=== PATIENT | male | born 1960 | race Caucasian/White ===

== ENCOUNTER 2016-03-31 08:55 | Emergency (ER) | payer BC ==
[~2016-03-31] VITALS: Wt 74.0 kg
[~2016-03-31 08:55] MED LIST: AMLO-218 PO; GABA100C PO; PRED20TA PO; TAMS0.4C2 PO
--- NOTE | 2016-03-31 10:34 | RADRPT ---
PROCEDURE: Scrotal ultrasound. CLINICAL INDICATION: Scrotal pain. TECHNIQUE: Real-time two-dimensional vu scale ultrasound, color and Doppler with spectral analys is imaging were performed. COMPARISON: No prior studies are available for comparison. FINDINGS: TESTES Right testis size: 4.0 x 1.9 x 3.6 cm Left testis size: 4.1 x 1.7 x 2.8 cm Echotexture: Normal. Color Doppler: Normal color Doppler flow pattern. EPIDIDYMIDES Size and echotexture: Normal. Focal lesion: None. Color Doppler: Normal color Doppler flow pattern. HYDROCELE None. VARICOCELE None. OTHER FINDINGS None. IMPRESSION: 1. Unremarkable scrotal ultrasound. RPTAT: EE .Arnoldo Mccracken MD, Date Time Electronically viewed and signed by .Arnoldo Mccracken MD, on 03/31/2016 10:38 .C/
[2016-03-31 10:45] LABS: ADD UMIC NO; URINE BILIRUBIN (Dip) NEGATIVE (NEGATIVE); URINE BLOOD (Dip) NEGATIVE (NEGATIVE); URINE COLOR LT. YELLOW (YELLOW); URINE GLUCOSE (Dip) NEGATIVE (NEGATIVE); URINE KETONES (Dip) NEGATIVE (NEGATIVE); URINE LEUKOCYTE ESTERASE (Dip) NEGATIVE (NEGATIVE); URINE NITRITE (Dip) NEGATIVE (NEGATIVE); URINE TOTAL PROTEIN (Dip) NEGATIVE (NEGATIVE); URINE UROBILINOGEN (Dip) 0.2 E.U./dL (0.1-1.0)
[2016-03-31 10:56] LABS: ALBUMIN 4.4 g/dl (3.3-4.9)
[2016-03-31 10:57] LABS: POTASSIUM 4.5 mmol/L (3.5-5.1)
[2016-03-31 10:59] LABS: ALBUMIN/GLOBULIN RATIO 1.41; BILIRUBIN,INDIRECT 0.6 mg/dl (0-1.1); BILIRUBIN,TOTAL 0.6 mg/dl (0.2-1.3); CALCIUM 9.2 mg/dl (8.4-10.2); CREATININE 0.81 mg/dl (0.61-1.24); TOTAL PROTEIN 7.5 g/dl (6.1-8.1)
--- NOTE | 2016-03-31 11:19 | ERD ---
ER Documentation Chief Complaint Date/Time DATE: 03/31/16 TIME: 11:16 Chief Complaint BILATERAL TESTICULAR PAIN FOR 3 MOS. NO TRAUMA NO SWELLING. HPI Patient is a 55-year-old male with no significant medical history presenting to the emergency department for bilateral testicular pain and prostate pain which is been ongoing for the past 6 months. He states the pain has been increasing recently. He did go to his primary care doctor about 2 months ago who ordered a PSA which was normal and stated he needed to follow-up with a specialist. The patient states he never did follow-up with a specialist and he is presenting today due to his pain. He denies any urinary symptoms, fevers, chills, nausea, vomiting, diarrhea, or other symptoms at this time. ROS All systems reviewed and are negative except as per history of present illness. Medications Home Meds Active Scripts Amlodipine Besylate* (Norvasc*) 10 Mg Tablet, 10 MG PO DAILY, #30 TAB Prov:TESSA LAZARO DO 01/03/16 Gabapentin* (Neurontin*) 100 Mg Capsule, 100 MG PO TID, #90 CAP Prov:TESSA LAZARO. DO 01/03/16 Prednisone* (Prednisone*) 20 Mg Tab, 60 MG PO DAILY for 5 Days, TAB Prov:TESSA LAZARO DO 01/03/16 Reported Medications Tamsulosin Hcl* (Tamsulosin Hcl*) 0.4 Mg Cap.er.24h, 0.4 MG PO HS, CAP 01/03/16 Allergies Allergies: Coded Allergies: No Known Allergy (Unverified , 01/03/16) PMhx/Soc Medical and Surgical Hx: pt denies Medical Hx, pt denies Surgical Hx History of Surgery: No Anesthesia Reaction: No Hx Neurological Disorder: No Hx Respiratory Disorders: No Hx Cardiac Disorders: No Hx Psychiatric Problems: No Hx Miscellaneous Medical Probl: Yes (BPH) Hx Alcohol Use: No Hx Substance Use: No Hx Tobacco Use: No Smoking Status: Never smoker FmHx Noncontributory for chief complaint Physical Exam Vitals Vital Signs Date Time Temp Pulse Resp B/P Pulse Ox O2 Delivery O2 Flow Rate FiO2 03/31/16 08:57 98.8 89 21 170/88 98 Physical Exam INITIAL VITAL SIGNS: Reviewed by me. GENERAL: Alert and interactive. No acute distress. HEAD: Head is normocephalic and atraumatic. EYES: EOMI. No scleral icterus. No conjunctival injection. ENT: Moist mucosa. NECK: Supple. Full range of motion. RESPIRATORY: Normal respiratory effort. Clear breath sounds bilaterally. No wheezing, rales, or rhonchi. CV: Regular rate and rhythm. Normal S1 S2. No S3 or S4. No murmurs. ABDOMEN: Soft, non-distended, non-tender. No guarding. No rebound. No masses. RECTAL: RN Hosiery Operator and Verbal Consent Obtained Sphincter tone is normal. No external hemorrhoids seen. No evidence of anal fissure or internal hemorrhoids. Non-tender to digital rectal palpation. No masses palpated. Guaiac negative. Control is positive. Exam: Scrotum: Normal Hernia: None Testes/Epid: Non-tender w/ normal lie Cremaster: Reflex intact Lymph: No inguinal lymphadenopathy Discharge: None EXTREMITIES: No deformity. SKIN: Warm and dry. NEUROLOGIC: Alert and oriented x 4. Speech is normal. Moves all extremities equally. No motor or sensory deficits noted. Result Diagram: 03/31/16 1020 Results 24 hrs Laboratory Tests Test 03/31/16 10:20 03/31/16 10:25 Alanine Aminotransferase (ALT/SGPT) 47IU/L Albumin 4.4g/dl Albumin/Globulin Ratio 1.41 Alkaline Phosphatase 69IU/L Anion Gap 19 Aspartate Amino Transf (AST/SGOT) 34IU/L Blood Urea Nitrogen 11mg/dl Calcium Level 9.2mg/dl Carbon Dioxide Level 25mmol/L Chloride Level 103mmol/L Creatinine 0.81mg/dl Direct Bilirubin 0.00mg/dl Globulin 3.10g/dl Glucose Level 89mg/dl Indirect Bilirubin 0.6mg/dl Potassium Level 4.5mmol/L Sodium Level 142mmol/L Total Bilirubin 0.6mg/dl Total Protein 7.5g/dl Urine Bilirubin NEGATIVE Urine Clarity CLEAR Urine Color LT. YELLOW Urine Glucose NEGATIVE% Urine Hemoglobin NEGATIVE Urine Ketones NEGATIVE Urine Leukocyte Esterase NEGATIVE Urine Nitrite NEGATIVE Urine Specific [place] 1.010 Urine Total Protein NEGATIVE Urine Urobilinogen 0.2 E.U./dL Urine pH 6.0 Procedures/MDM 55-year-old male with no significant medical history presents secondary to complaints of bilateral testicle pain and prostate pain. Scrotal ultrasound interpreted by radiologist: Lab results reviewed and showed Departure Condition: Stable Additional Instructions: Follow-up with your primary care physician within 1 week. Return to the emergency department immediately should you have any new or worsening symptoms, uncontrolled fevers, or other unexplained symptoms. Take all medications as directed. MELANY GRACE PA-C Mar 31, 2016 11:19
[2016-03-31 12:10] LABS: BASOPHILS % 0.6 % (0.0-2.0); EOSINOPHILS % 0.4 % (0.0-7.0); HEMATOCRIT 44.2 % (42.0-52.0); HEMOGLOBIN 15.3 g/dl (14.0-18.0); LYMPHOCYTES # 2.6 10^3/ul (0.8-2.9); LYMPHOCYTES % 32.8 % (15.0-51.0); MEAN CORPUSCULAR HEMOGLOBIN 29.1 pg (29.0-33.0); MEAN CORPUSCULAR HGB CONC 34.6 g/dl (32.0-37.0); MEAN CORPUSCULAR VOLUME 83.9 fl (82.0-101.0); MEAN PLATELET VOLUME 9.3 fl (7.4-10.4); MONOCYTE # 0.6 10^3/ul (0.3-0.9); MONOCYTES % 7.9 % (0.0-11.0); NEUTROPHIL # 4.6 10^3/ul (1.6-7.5); NEUTROPHILS % 58.3 % (39.0-77.0); PLATELET COUNT 215 10^3/UL (140-440); RED BLOOD COUNT 5.27 10^6/ul (4.70-6.10); RED CELL DISTRIBUTION WIDTH 13.9 % (11.5-14.5); UNCORRECTED WBC 7.8 10^3/ul (4.8-10.8); WHITE BLOOD COUNT 7.8 10^3/ul (4.8-10.8)
[2016-03-31 12:12] LABS: CONDITION 1
[2016-03-31] MEDS ORDERED: DOXY100T20 PO (12:41)
[2016-04-02 19:00] LABS: PSA, FREE 0.1 ng/mL
== END 2016-03-31 13:04 | disposition home or self-care (01) ==
LOC: FTE 08:55
DX: N50.811 Right testicular pain (principal); N50.812 Left testicular pain; N42.89 Other specified disorders of prostate
CPT/HCPCS: 36415; 76870; 80053; 81003; 84153; 84154; 85025

== ENCOUNTER 2016-04-24 13:35 | Emergency (ER) | payer BC ==
[~2016-04-24] VITALS: Wt 72.8 kg
[~2016-04-24 13:35] MED LIST changes: +DOXY100T20 PO
--- NOTE | 2016-04-24 14:28 | EN ---
Date/Time of Note Date/Time of Note DATE: 04/24/16 TIME: 14:26 ER Progress Note This is a 55-year-old male presenting to the emergency room complaining of left lower facial pain, numbness and tingling and warmth that radiates up to his head since Saturday. Patient states that he was seen at a dentist on Saturday in which they have discussed with him that it is an infection. Patient went to another doctor on Saturday at the [facility], in which patient is not an infection and it is a problem with the nerves. They have discussed with him that if the pain worsens and continues to come to the emergency room for CT imaging. Patient appears neurovascular intact in E however he will be transferred to ED to for further evaluation and management. MANISH TREVIZO PA-C Apr 24, 2016 14:27
[2016-04-24] MEDS ORDERED: HYDR-906 PO (14:56)
[2016-04-24] MEDS ORDERED: NAPR-260 PO (14:56)
[2016-04-24] MEDS ORDERED: CLIN-73 PO (14:56)
[2016-04-24 15:41] VITALS: BP 174/82; PULSE 66; RESP 18; TEMP 98
--- NOTE | 2016-04-24 16:06 | ERD ---
DATE OF SERVICE: 04/24/2016 HISTORY OF PRESENT ILLNESS: The patient is a 55-year-old male coming in complaining of left lower d ental pain for the last 4 days. Patient states he has taken ibuprofen with no alleviation. He was given antibiotics a few weeks ago; however, it has not helped his symptoms. He has pain with eating . He states that the pain radiates up his jaw. He has had no facial swelling. No difficulty swall owing, no neck swelling and denies fevers. PAST MEDICAL HISTORY: Denies. ALLERGIES: DENIES. PAST SURGICAL HISTORY: Denies. SURGICAL HISTORY: Ortho surgery on his wrist. SOCIAL HISTORY: Denies. REVIEW OF SYSTEMS: A 12-point review of systems was done. Refer to HPI for positives, all other sy stems negative. PHYSICAL EXAMINATION VITAL SIGNS: Temperature is 98.5, pulse 85, blood pressure is 140/81, respiratory rate 20, O2 satur ation 97% on room air. Pain intensity of 10/10. GENERAL: The patient is well-appearing, well-nourished, no acute distress. HEENT: Atraumatic. Conjunctivae are pink. Pupils equal, round, and reactive to light. There is no s cleral icterus. Tympanic membranes clear bilaterally. Oropharynx clear. No nystagmus or photophobia . There is mild erythema noted to the left lower jawline. The patient does have pain when he bite s down on tongue depressor. There is no cervical lymphadenopathy, no fluctuance, no masses. CHEST: Clear to auscultation bilaterally. There are no rales, wheezes or rhonchi. HEART: Regular rate and rhythm. No murmurs, clicks, rubs or gallops. No S3 or S4. NEURO: Alert and oriented. Cranial nerves 2-12 intact. Motor strength in all 4 extremities with 5/5 strength. Sensation grossly intact. Normal speech and gait. Babinski negative. DIAGNOSIS: Dental pain, unspecified. MEDICAL DECISION MAKING: Patient will be treated with antibiotics and pain medication. I did recom mend patient to follow up with his dentist for close evaluation. I did not feel that there was rai cation for blood work or imaging. I have low suspicion for intracranial hemorrhage, mass effect or neuro deficit. DISCHARGE: The patient is discharged stable. Patient discharged with clindamycin, [place] and naprox en and told to follow up with primary care within 1 to 2 days for reevaluation. Patient was told if symptoms progress or worsen to return to the ER. All other questions answered at time of discharge . Discharge summary given at the time of departure. Patient understood and complied with plan. Dictated By: GEGE YEN for MATHEW EASTMAN/NTS Conf#: [id number] DID#: [id number]
== END 2016-04-24 15:43 | disposition home or self-care (01) ==
LOC: E/R 13:35 → FTE 15:43
DX: K08.89 Other specified disorders of teeth and supporting structures (principal)
CPT/HCPCS: 99284

== ENCOUNTER 2016-05-18 09:30 | Emergency (ER) | payer BC ==
[~2016-05-18] VITALS: Wt 71.5 kg
[~2016-05-18 09:30] MED LIST changes: +CLIN-73 PO; +HYDR-906 PO; +NAPR-260 PO
[2016-05-18] MEDS ORDERED: ONDANSETRON (ODT) 4 MG TAB ODT STA (11:35)
[2016-05-18] MEDS ORDERED: HYDROCODONE/APAP (5/325) TAB PO ONE (12:00)
[2016-05-18 12:24] LABS: ADD SCAN DIFF NO
[2016-05-18 12:26] LABS: BASOPHILS % 0.6 % (0.0-2.0); EOSINOPHILS # 0.1 10^3/ul (0.0-0.5); EOSINOPHILS % 0.7 % (0.0-7.0); HEMATOCRIT 46.9 % (42.0-52.0); LYMPHOCYTES # 2.3 10^3/ul (0.8-2.9); LYMPHOCYTES % 31.3 % (15.0-51.0); MEAN CORPUSCULAR HEMOGLOBIN 28.7 pg (29.0-33.0); MEAN CORPUSCULAR HGB CONC 34.1 g/dl (32.0-37.0); MEAN CORPUSCULAR VOLUME 84.1 fl (82.0-101.0); MEAN PLATELET VOLUME 10.5 fl (7.4-10.4); MONOCYTE # 0.7 10^3/ul (0.3-0.9); NEUTROPHIL # 4.2 10^3/ul (1.6-7.5); PLATELET COUNT 266 10^3/UL (140-415); RED BLOOD COUNT 5.58 10^6/ul (4.70-6.10); RED CELL DISTRIBUTION WIDTH 14.2 % (11.5-14.5); WHITE BLOOD COUNT 7.3 10^3/ul (4.8-10.8)
[2016-05-18 12:31] LABS: ADD UMIC NO; URINE BILIRUBIN (Dip) NEGATIVE (NEGATIVE); URINE BLOOD (Dip) NEGATIVE (NEGATIVE); URINE COLOR LT. YELLOW (YELLOW); URINE GLUCOSE (Dip) NEGATIVE (NEGATIVE); URINE KETONES (Dip) NEGATIVE (NEGATIVE); URINE LEUKOCYTE ESTERASE (Dip) NEGATIVE (NEGATIVE); URINE NITRITE (Dip) NEGATIVE (NEGATIVE); URINE TOTAL PROTEIN (Dip) NEGATIVE (NEGATIVE); URINE UROBILINOGEN (Dip) 0.2 E.U./dL (0.1-1.0)
[2016-05-18 12:41] LABS: ALBUMIN 4.6 g/dl (3.3-4.9); POTASSIUM 4.1 mmol/L (3.5-5.1)
[2016-05-18 12:43] LABS: BILIRUBIN,INDIRECT 0.6 mg/dl (0-1.1); BILIRUBIN,TOTAL 0.6 mg/dl (0.2-1.3); CREATININE 0.83 mg/dl (0.61-1.24)
[2016-05-18 12:44] LABS: ALBUMIN/GLOBULIN RATIO 1.43; CALCIUM 9.5 mg/dl (8.4-10.2); TOTAL PROTEIN 7.8 g/dl (6.1-8.1)
--- NOTE | 2016-05-18 13:29 | ERD ---
ER Documentation Chief Complaint Date/Time DATE: 05/18/16 TIME: 13:25 Chief Complaint bilat testicle pain for a few years. has appt with urology, pain not better HPI Patient is a 56-year-old gentleman who has been reporting testicular pain of both testicles for the last several years. He allegedly had an ultrasound done at another facility that showed bilateral epididymal cysts which he states are painful. He says he saw a urologist but the urologist told him there was nothing to do for this and this is very upsetting to him. He has taken doxycycline which did not help his pain order to help the cyst resolved. And so he is here for second opinion. He denies any change in the pain. He denies any trauma, fever, dysuria, hematuria, penile drip, discharge, sores, or lesions. He has not had any abdominal pain, nausea, vomiting, diarrhea, flank, or back pain. He states his pain is only in the testicles and it is the same pain for which he is already been evaluated. The remainder of the systems are negative. ROS All systems reviewed and are negative except as per history of present illness. Medications Home Meds Active Scripts Naproxen* (Naprosyn*) 500 Mg Tablet, 500 MG PO BID Y for PAIN AND/OR INFLAMMATION, #30 TAB Prov:NEIL TRUONG PA-C 04/24/16 Hydrocodone/Acetaminophen ([place] 5-325 Tablet) 1 Each Tablet, 1 TAB PO Q6H Y for PAIN, #7 TAB Prov:NEIL TRUONG PA-C 04/24/16 Clindamycin Hcl* (Clindamycin Hcl*) 300 Mg Capsule, 300 MG PO TID for 7 Days, CAP Prov:NEIL TRUONG PA-C 04/24/16 Doxycycline Hyclate* (Doxycycline Hyclate*) 100 Mg Tablet.dr, 100 MG PO BID for 10 Days, #20 TAB Prov:MELANY GRACE PA-C 03/31/16 Amlodipine Besylate* (Norvasc*) 10 Mg Tablet, 10 MG PO DAILY, #30 TAB Prov:TESSA LAZARO DO 01/03/16 Gabapentin* (Neurontin*) 100 Mg Capsule, 100 MG PO TID, #90 CAP Prov:TESSA LAZARO DO 01/03/16 Prednisone* (Prednisone*) 20 Mg Tab, 60 MG PO DAILY for 5 Days, TAB Prov:TESSA LAZARO DO 01/03/16 Reported Medications Tamsulosin Hcl* (Tamsulosin Hcl*) 0.4 Mg Cap.er.24h, 0.4 MG PO HS, CAP 01/03/16 Allergies Allergies: Coded Allergies: No Known Allergy (Unverified , 01/03/16) PMhx/Soc History of Surgery: No Anesthesia Reaction: No Hx Neurological Disorder: No Hx Respiratory Disorders: No Hx Cardiac Disorders: No Hx Psychiatric Problems: No Hx Miscellaneous Medical Probl: Yes (BPH) Hx Alcohol Use: No Hx Substance Use: No Hx Tobacco Use: No FmHx Family History: No diabetes Physical Exam Vitals Vital Signs Date Time Temp Pulse Resp B/P Pulse Ox O2 Delivery O2 Flow Rate FiO2 05/18/16 09:33 98.8 93 20 193/101 98 Physical Exam Const: [] Well-developed well-nourished male sitting on the bed no acute distress Head: Atraumatic normocephalic Eyes: Normal Conjunctiva ENT: Normal External Ears, Nose and Mouth. Neck: Full range of motion..~ No meningismus. Resp: Clear to auscultation bilaterally Cardio: Regular rate and rhythm, no murmurs Abd: Soft, non tender, non distended. Normal bowel sounds no masses, rebound , or guarding Skin: No petechiae or rashes Back: No midline or flank tenderness Ext: No cyanosis, or edema Neur: Awake and alert oriented 3, GCS of 15, moves all extremities equally, and nonfocal Psych: Normal Mood and Affect : Patient reports bilateral testicular pain in the epididymal region without any palpable swelling, objective masses, no lymphadenopathy in the inguinal regions, no erythema Result Diagram: 05/18/16 1218 05/18/16 1218 Results 24 hrs Laboratory Tests Test 05/18/16 12:18 05/18/16 12:25 Alanine Aminotransferase (ALT/SGPT) 62IU/L Albumin 4.6g/dl Albumin/Globulin Ratio 1.43 Alkaline Phosphatase 86IU/L Anion Gap 15 Aspartate Amino Transf (AST/SGOT) 38IU/L Basophils # 0.010^3/ul Basophils % 0.6% Blood Urea Nitrogen 11mg/dl Calcium Level 9.5mg/dl Carbon Dioxide Level 28mmol/L Chloride Level 104mmol/L Creatinine 0.83mg/dl Direct Bilirubin 0.00mg/dl Eosinophils # 0.110^3/ul Eosinophils % 0.7% Globulin 3.20g/dl Glucose Level 86mg/dl Hematocrit 46.9% Hemoglobin 16.0g/dl Indirect Bilirubin 0.6mg/dl Lymphocytes # 2.310^3/ul Lymphocytes % 31.3% Mean Corpuscular Hemoglobin 28.7pg Mean Corpuscular Hemoglobin Concent 34.1g/dl Mean Corpuscular Volume 84.1fl Mean Platelet Volume 10.5fl Monocytes # 0.710^3/ul Monocytes % 9.0% Neutrophils # 4.210^3/ul Neutrophils % 58.0% Nucleated Red Blood Cells # 0.010^3/ul Nucleated Red Blood Cells % 0.0/100WBC Platelet Count 51465^3/UL Potassium Level 4.1mmol/L Red Blood Count 5.5810^6/ul Red Cell Distribution Width 14.2% Sodium Level 143mmol/L Total Bilirubin 0.6mg/dl Total Protein 7.8g/dl White Blood Count 7.310^3/ul Urine Bilirubin NEGATIVE Urine Clarity CLEAR Urine Color LT. YELLOW Urine Glucose NEGATIVE% Urine Hemoglobin NEGATIVE Urine Ketones NEGATIVE Urine Leukocyte Esterase NEGATIVE Urine Nitrite NEGATIVE Urine Specific [place] 1.010 Urine Total Protein NEGATIVE Urine Urobilinogen 0.2 E.U./dL Urine pH 6.0 Current Medications Medications (Trade) Dose Ordered Sig/Gloria Route PRN Reason Start Time Stop Time Status Last Admin Dose Admin Acetaminophen/ Hydrocodone Bitart ([place] (5/325)) 2 tab ONCE ONCE PO 05/18/16 12:00 05/18/16 12:01 DC Ondansetron HCl (Zofran Odt) 4 mg ONCE STAT ODT 05/18/16 11:35 05/18/16 11:41 DC Procedures/MDM Differential includes but is not limited to epididymitis, epididymal cyst, hydrocele, STD, testicular torsion, orchitis Testicular ultrasound revealed bilateral epididymal cyst as well as bilateral hydroceles but no evidence of epididymitis or orchitis. He also does not have testicular torsion. 1400: Patient has a normal white count, urinalysis is clean. He appears stable for discharge home with follow-up with a urologist. Departure Diagnosis: Primary Impression: Hydrocele, bilateral Additional Impression: Epididymal cyst Condition: Stable Patient Instructions: Hydrocele, Type Not Specified Referrals: KRISTYN FREEMAN MD Additional Instructions: You may want to wear a jock strap for support. This may help significantly with the pain and discomfort that you are experiencing. Please make an appointment either with Dr. Freeman or with the urologist of your choice. Return to the emergency department for any new or worsening symptoms. ODILIA GLOVER May 18, 2016 13:28
--- NOTE | 2016-05-18 13:55 | RADRPT ---
PROCEDURE: Scrotal ultrasound CLINICAL INDICATION: Scrotal pain TECHNIQUE: Scrotal ultrasound was performed in multiple obliquities. Gan scale and color imaging was performed. Images were reviewed on high resolution PACS monitors. COMPARISON: None available FINDINGS: The testes are normal in size and echogenicity. There is normal flow to the bilateral testes. No t esticular mass or cyst is identified. No hydroceles are seen. There is a 5 mm right epididymal cyst and a 4 mm left epididymal cyst.. Mild bilateral varicoceles are present. IMPRESSION: 1. Small bilateral epididymal cysts. 2. Mild bilateral varicoceles. 3. Otherwise unremarkable scrotal ultrasound. RPTAT: KK .Yovany Laird MD, MD Date Time Electronically viewed and signed by .Yovany Laird MD, on 05/18/2016 13:55 .B/
[2016-05-18] MEDS ORDERED: TRAM50TA2 PO (14:06)
[2016-05-18 14:25] VITALS: BP 113/59; PULSE 65; RESP 18; TEMP 98.3
== END 2016-05-18 14:52 | disposition home or self-care (01) ==
LOC: E/R 09:30
DX: N43.3 Hydrocele, unspecified (principal); N50.3 Cyst of epididymis
CPT/HCPCS: 76870; 80053; 81003; 85025; 87591; 99284; Z7610

== ENCOUNTER 2017-01-22 17:19 | Emergency (ER) | payer BC ==
[~2017-01-22] VITALS: Wt 73.2 kg
[~2017-01-22 17:19] MED LIST changes: -CLIN-73 PO; +TRAM50TA2 PO
--- NOTE | 2017-01-22 18:50 | ERD ---
ER Documentation Chief Complaint Chief Complaint l. 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 Patient describes the pain as sharp, 6/10, worse upon movement. Patient denies any deformity. Patient denies any direct trauma on affected area ROS All systems reviewed and are negative except as per history of present illness. Medications Home Meds Active Scripts Tramadol HCl (Tramadol HCl) 50 Mg Tablet, 50 MG PO Q6, #20 TAB 0 Refills Prov:MARTÍN GLOVERA 05/18/16 Naproxen* (Naprosyn*) 500 Mg Tablet, 500 MG PO BID Y for PAIN AND/OR INFLAMMATION, #30 TAB Prov:NEIL TRUONG PA-C 04/24/16 Hydrocodone/Acetaminophen ([place] 5-325 Tablet) 1 Each Tablet, 1 TAB PO Q6H Y for PAIN, #7 TAB Prov:NEIL TRUONG PA-C 04/24/16 Doxycycline Hyclate* (Doxycycline Hyclate*) 100 Mg Tablet.dr, 100 MG PO BID for 10 Days, #20 TAB Prov:MELANY GRACE PA-C 03/31/16 Amlodipine Besylate* (Norvasc*) 10 Mg Tablet, 10 MG PO DAILY, #30 TAB Prov:TESSA LAZARO DO 01/03/16 Gabapentin* (Neurontin*) 100 Mg Capsule, 100 MG PO TID, #90 CAP Prov:TESSA LAZARO DO 01/03/16 Prednisone* (Prednisone*) 20 Mg Tab, 60 MG PO DAILY for 5 Days, TAB Prov:LOLA LAZAROSTOLOS AEmeka DO 01/03/16 Reported Medications Tamsulosin Hcl* (Tamsulosin Hcl*) 0.4 Mg Cap.er.24h, 0.4 MG PO HS, CAP 01/03/16 Allergies Allergies: Coded Allergies: No Known Allergy (Unverified , 05/18/16) PMhx/Soc History of Surgery: No Anesthesia Reaction: No Hx Neurological Disorder: No Hx Respiratory Disorders: No Hx Cardiac Disorders: No Hx Psychiatric Problems: No Hx Miscellaneous Medical Probl: Yes (BPH) Hx Alcohol Use: No Hx Substance Use: No Hx Tobacco Use: No FmHx Family History: No coronary disease, No diabetes, No other Physical Exam Vitals Vital Signs Date Time Temp Pulse Resp B/P Pulse Ox O2 Delivery O2 Flow Rate FiO2 01/22/17 17:40 97.0 77 20 174/93 97 Physical Exam GENERAL: The patient is well developed and appropriate for usual state of health, in no apparent distress. CHEST: Clear to auscultation bilaterally. There are no rales, wheezes or rhonchi. HEART: Regular rate and rhythm. No murmurs, clicks, rubs or gallops. No S3 or S4. ABDOMEN: Soft, nontender and nondistended. Good bowel sounds. No rebound or guarding. No gross peritonitis. No gross organomegaly or masses. No Up sign or McBurney point tenderness. BACK: No midline or flank tenderness. EXTREMITIES: Able to do full range of motion of left ankle w/o restriction. no deformity, no redness or swelling. Equal pulses bilaterally. There is no peripheral clubbing, cyanosis or edema. No focal swelling or erythema. Full range of motion. Grossly neurovascularly intact. NEURO: Alert and oriented. Cranial nerves 2-12 intact. Motor strength in all 4 extremities with 5/5 strength. Sensation grossly intact. Normal speech and gait. SKIN: There is no apparent rash or petechia. The skin is warm and dry. HEMATOLOGIC AND LYMPHATIC: There is no evidence of excessive bruising or lymphedema. No gross cervical, axillary, or inguinal lymphadenopathy. Results 24 hrs Current Medications Medications (Trade) Dose Ordered Sig/Gloria Route PRN Reason Start Time Stop Time Status Last Admin Dose Admin Ibuprofen (Motrin) 600 mg ONCE ONCE PO 01/22/17 19:00 01/22/17 19:01 DC 01/22/17 18:49 Patient was given medication for pain here in emergency department, after treatment, patient verbalized feeling much better. Patient's pain is improved. PROCEDURE: XR left Ankle. CLINICAL INDICATION: Ankle pain TECHNIQUE: Three views of the left ankle were performed. COMPARISON: None. FINDINGS: There is no acute fracture or dislocation. Ankle mortise is intact. Joint spaces are maintained. The soft tissues are unremarkable. RPTAT: AA IMPRESSION: No acute bony abnormality. Signed By: Jade Pearson M.d Procedures/MDM Medical Decision Making: Patient's pain is most likely consistent with a contusion or a sprain. There is no suspicion for neurovascular compromise. Patient has intact sensation and circulation of the affected extremity. There is low suspicion for septic arthritis. Patient does not have any fever. Radiology exams of the affected area does not show any fracture or dislocation. Disposition: Home. Patient is given prescription for ibuprofen for pain, Tramadol for severe pain. Patient was advised to elevate the affected area and apply ice on affected area. Patient was advised that if symptoms are worse, numbness, tingling, high fever, unable to move joint, worsening symptoms, to return to emergency department immediately. Otherwise, patient is advised to follow up with the primary care doctor in 5-7 days for reevaluation of symptoms. Disclaimer: Inadvertent spelling and grammatical errors are likely due to EHR/ dictation software use and do not reflect on the overall quality of patient care. Also, please note that the electronic time recorded on this note does not necessarily reflect the actual time of the patient encounter. Departure Diagnosis: Primary Impression: Ankle pain, left Chronicity: acute Qualified Code: M25.572 - Acute left ankle pain Condition: Stable Patient Instructions: Sprain, Ankle, With X-Ray Additional Instructions: Patient is given prescription for ibuprofen for pain, Tramadol for severe pain. Patient was advised to elevate the affected area and apply ice on affected area. Patient was advised that if symptoms are worse, numbness, tingling, high fever, unable to move joint, worsening symptoms, to return to emergency department immediately. Otherwise, patient is advised to follow up with the primary care doctor in 5-7 days for reevaluation of symptoms. BEN FLORES NP Jan 22, 2017 18:49
[2017-01-22] MEDS ORDERED: IBUPROFEN 600 MG TAB PO ONE (19:00)
--- NOTE | 2017-01-22 19:16 | RADRPT ---
PROCEDURE: XR left Ankle. CLINICAL INDICATION: Ankle pain TECHNIQUE: Three views of the left ankle were performed. COMPARISON: None. FINDINGS: There is no acute fracture or dislocation. Ankle mortise is intact. Joint spaces are maintained. The soft tissues are unremarkable. RPTAT: AA IMPRESSION: No acute bony abnormality. .Jade Pearson MD, MD Date Time Electronically viewed and signed by .Jade Pearson MD, on 01/22/2017 19:16 .T/
[2017-01-22] MEDS ORDERED: IBUP-1542 PO (21:20)
[2017-01-22] MEDS ORDERED: TRAM50TA2 PO (21:20)
== END 2017-01-22 21:42 | disposition home or self-care (01) ==
LOC: FTE 17:19
DX: M25.572 Pain in left ankle and joints of left foot (principal)
CPT/HCPCS: 73610; 99283; Z7610

== ENCOUNTER 2017-06-06 17:20 | Emergency (ER) | END 2017-06-06 21:45 | disposition home or self-care (01) ==

== ENCOUNTER 2017-11-28 16:17 | Emergency (ER) | END 2017-11-28 19:57 | disposition home or self-care (01) ==

== ENCOUNTER 2018-02-28 15:09 | Emergency (ER) | END 2018-02-28 15:48 | disposition home or self-care (01) ==

== ENCOUNTER 2018-09-05 08:07 | Emergency (ER) | payer BC ==
[~2018-09-05] VITALS: Ht 167.6 cm; Wt 71.6 kg
[~2018-09-05 08:07] MED LIST changes: +ALBU8.5H8 INH; -AMLO-218 PO; +AZIT250T PO; +DIC20 PO; -DOXY100T20 PO; -GABA100C PO; +GABA100C14 PO; -HYDR-906 PO; -NAPR-260 PO; +OMEP40CA6 PO; -PRED20TA PO; +PROM6.2515 PO; -TRAM50TA2 PO
[2018-09-05 08:17] VITALS: BP 140/90; PULSE 63; RESP 18; Ht 167.6 cm; Wt 71.6 kg
[2018-09-05] MEDS ORDERED: SOD CHLORIDE 0.9% 1,000 ML IV STA (08:54)
[2018-09-05] MEDS ORDERED: KETOROLAC 30 MG INJ IV STA (08:54)
[2018-09-05] MEDS ORDERED: ONDANSETRON 4 MG INJ IV STA (08:54)
[2018-09-05] MEDS ORDERED: FAMO-96 PO (10:33)
[2018-09-05] MEDS ORDERED: NAPR-985 PO (10:33)
--- NOTE | 2018-09-05 10:40 | ERD ---
ER Documentation Chief Complaint Chief Complaint rt side rib pain x 1 week HPI 58-year-old male presenting with right-sided rib pain and epigastric pain x1 week. Patient denies any chest pain or shortness of breath. He had no vomiting and has no cough. Normal urination bowel movement has not taken medications for his symptoms. Denies any radiating chest pain to the left side. Denies any back pain. Denies medical problems. NKDA. Surgical history is wrist surgery. Social history denies ROS All systems reviewed and are negative except as per history of present illness. Medications Home Meds Active Scripts Naproxen* (Naprosyn*) 500 Mg Tablet, 500 MG PO BID PRN for PAIN AND/OR INFLAMMATION, #30 TAB Prov:NEIL TRUONG PA-C 09/05/18 Famotidine* (Pepcid*) 20 Mg Tablet, 20 MG PO BID for 4 Days, #30 TAB Prov:NEIL TRUONG PA-C 09/05/18 Azithromycin* (Zithromax*) 250 Mg Tablet, 250 MG PO .DANIELLECK DIRECTED, #6 TAB TAKE 500 MG (2 TABS) THE FIRST DAY THEN 250 MG (1 TAB) DAYS 2-5 Prov:NEIL TRUONG PA-C 02/28/18 Albuterol Sulfate* (Proair HFA*) 8.5 Gm Hfa.aer.ad, 2 PUFF INH Q4, #1 INHALER Prov:NEIL TRUONG PA-C 02/28/18 Promethazine Hcl* (Promethazine Hcl* Syrup) 6.25 Mg/5 Ml Syrup, 6.25 MG PO Q6H PRN for COUGH, #100 ML Prov:NEIL TRUONG PA-C 02/28/18 Gabapentin* (Gabapentin*) 100 Mg Capsule, 100 MG PO TID, #30 CAP Prov:SHERRI HOLM PA-C 11/28/17 Omeprazole* (Omeprazole*) 40 Mg Capsule.dr, 40 MG PO DAILY, #14 CAP Prov:TESSA LAZARO DO 06/06/17 Dicyclomine HCl (Dicyclomine HCl) 20 Mg Tablet, 20 MG PO Q4 for PAIN, #20 Prov:TESSA LAZARO DO 06/06/17 Reported Medications Tamsulosin Hcl* (Tamsulosin Hcl*) 0.4 Mg Cap.er.24h, 0.8 MG PO HS, CAP 06/06/17 Allergies Allergies: Coded Allergies: No Known Allergy (Unverified , 06/06/17) PMhx/Soc History of Surgery: No Anesthesia Reaction: No Hx Neurological Disorder: No Hx Respiratory Disorders: No Hx Cardiac Disorders: No Hx Psychiatric Problems: No Hx Miscellaneous Medical Probl: Yes (BPH) Hx Alcohol Use: No Hx Substance Use: No Hx Tobacco Use: No FmHx Family History: No diabetes, No coronary disease, No other Physical Exam Vitals Vital Signs Date Temp Pulse Resp B/P (MAP) Pulse Ox O2 O2 Flow FiO2 Time Delivery Rate 09/05/18 97.6 63 18 140/90 100 08:17 (107) Physical Exam GENERAL: The patient is well-appearing, well-nourished, in no acute distress CHEST: Clear to auscultation bilaterally. There are no rales, wheezes or rhonchi. HEART: Regular rate and rhythm. No murmurs, clicks, rubs or gallops. ABDOMEN: Normal active bowel sounds. No distention. No organomegaly. Tender to palpation to the epigastric region with no rebound tenderness. BACK: No midline or flank tenderness. SKIN: There is no apparent rash or petechiae. The skin is warm and dry. Result Diagram: 09/05/1890409/05/18904 Results 24 hrs Laboratory Tests Test 09/05/18 09:05 White Blood Count 6.6 10^3/ul Red Blood Count 5.37 10^6/ul Hemoglobin 15.3 g/dl Hematocrit 44.9 % Mean Corpuscular Volume 83.6 fl Mean Corpuscular Hemoglobin 28.5 pg Mean Corpuscular Hemoglobin Concent 34.1 g/dl Red Cell Distribution Width 14.9 % Platelet Count 216 10^3/UL Mean Platelet Volume 10.4 fl Immature Granulocytes % 0.500 % Neutrophils % 52.5 % Lymphocytes % 34.6 % Monocytes % 8.6 % Eosinophils % 3.0 % Basophils % 0.8 % Nucleated Red Blood Cells % 0.0 /100WBC Immature Granulocytes # 0.030 10^3/ul Neutrophils # 3.5 10^3/ul Lymphocytes # 2.3 10^3/ul Monocytes # 0.6 10^3/ul Eosinophils # 0.2 10^3/ul Basophils # 0.1 10^3/ul Nucleated Red Blood Cells # 0.0 10^3/ul Urine Color STRAW Urine Clarity CLEAR Urine pH 7.0 Urine Specific [place] 1.003 Urine Ketones NEGATIVE mg/dL Urine Nitrite NEGATIVE mg/dL Urine Bilirubin NEGATIVE mg/dL Urine Urobilinogen NEGATIVE mg/dL Urine Leukocyte Esterase NEGATIVE Cici/ul Urine Hemoglobin NEGATIVE mg/dL Urine Glucose NEGATIVE mg/dL Urine Total Protein NEGATIVE mg/dl Sodium Level 144 mmol/L Potassium Level 4.4 mmol/L Chloride Level 104 mmol/L Carbon Dioxide Level 29 mmol/L Anion Gap 11 Blood Urea Nitrogen 10 mg/dl Creatinine 0.88 mg/dl Est Glomerular Filtrat Rate mL/min > 60 mL/min Glucose Level 93 mg/dl Calcium Level 8.7 mg/dl Total Bilirubin 0.9 mg/dl Direct Bilirubin 0.00 mg/dl Indirect Bilirubin 0.9 mg/dl Aspartate Amino Transf (AST/SGOT) 26 IU/L Alanine Aminotransferase (ALT/SGPT) 38 IU/L Alkaline Phosphatase 63 IU/L Total Protein 7.8 g/dl Albumin 4.4 g/dl Globulin 3.40 g/dl Albumin/Globulin Ratio 1.29 Lipase 95 U/L Current Medications Medications Dose Sig/Gloria Start Time Status Last (Trade) Ordered Route PRN Stop Time Admin Dose Reason Admin Sodium 1,000 ml @ Q1H STAT 09/05/18 DC 09/05/18 Chloride 1,000 mls/hr IV 08:54 09/05/18 09:10 09:53 Ondansetron 4 mg ONCE STAT 09/05/18 DC 09/05/18 HCl (Zofran IV 08:54 09/05/18 09:10 Inj) 08:55 Ketorolac 30 mg ONCE STAT 09/05/18 DC 09/05/18 Tromethamine IV 08:54 09/05/18 09:10 (Toradol) 08:55 Procedures/MDM DIAGNOSTIC IMAGING REPORT Patient: JESUS ESPINO : 1960 Age: 58 Sex: M MR #: [id number] DOS: 09/05/18 0854 Ordering MD: GEGE TRUONG PA-C Location: [facility] Room/Bed: PROCEDURE: CHEST - 1 VIEW CLINICAL INDICATION: 58-year-old male with chest/abdominal pain. AP semi-erect portable TECHNIQUE: A single frontal semi-upright view of the chest was performed. The images were reviewed on a PACS workstation. COMPARISON: None. FINDINGS: The cardiomediastinal silhouette has a normal appearance. There is no evidence for an infiltrate. There is no evidence for congestive heart failure. There is no evidence for pneumothorax. The osseous structures are intact. IMPRESSION: No evidence for active cardiopulmonary disease. DIAGNOSTIC IMAGING REPORT Patient: JESUS ESPINO : 1960 Age: 58 Sex: M MR #: [id number] DOS: 09/05/18 0000 Ordering MD: GEGE TRUONG PA-C Location: [facility] Room/Bed: PROCEDURE: ULTRASOUND LIMITED ABDOMEN CLINICAL INDICATION: 58-year-old male with abdominal pain. TECHNIQUE: Multiple sonographic of the right upper quadrant of the abdomen were obtained. The images were reviewed on a PACS workstation. COMPARISON: Right upper quadrant ultrasound June 06, 2017. FINDINGS: The pancreas is partially visualized and is otherwise without abnormal echogenicity. The liver displays diffuse increased echogenicity. The liver measures 12.0 cm in length. No evidence of intrahepatic biliary ductal dilatation is seen. The portal and hepatic veins are unremarkable. The gallbladder demonstrates no wall thickening, sludge, nor stones. No pericholecystic fluid is seen. The common bile duct measures 4.6 mm and is not dilated. The right kidney displays normal echogenicity. The right kidney measures 10.2 x 5.1 x 5.5 cm. No caliectasis or hydronephrosis is seen. No free fluid is seen. IMPRESSION: Hepatic steatosis. MDM: 88-year-old male presenting with right-sided rib pain. I have low suspicion for choledocholithiasis, cholecystitis or cholangitis. I have low suspicion for pulmonary contusion PE or pneumothorax. I have low suspicion for rib fracture. Patient is discharged with supportive medications and told to follow-up with primary care within 1 to 2 days for close evaluation. Patient is discharged with strict ER precautions. All questions answered at discharge Departure Diagnosis: Primary Impression: Epigastric pain Additional Impression: Rib pain Condition: Stable Patient Instructions: Rib Contusion, Epigastric Pain (Uncertain Cause) Referrals: COUNT INCLUDES THE [facility] YOU HAVE RECEIVED A MEDICAL SCREENING EXAM AND THE RESULTS INDICATE THAT YOU DO NOT HAVE A CONDITION THAT REQUIRES URGENT TREATMENT IN THE EMERGENCY DEPARTMENT. FURTHER EVALUATION AND TREATMENT OF YOUR CONDITION CAN WAIT UNTIL YOU ARE SEEN IN YOUR DOCTORS OFFICE WITHIN THE NEXT 1-2 DAYS. IT IS YOUR RESPONSIBILITY TO MAKE AN APPOINTMENT FOR FOLOW-UP CARE. IF YOU HAVE A PRIMARY DOCTOR --you should call your primary doctor and schedule an appointment IF YOU DO NOT HAVE A PRIMARY DOCTOR YOU CAN CALL OUR PHYSICIAN REFERRAL HOTLINE AT IF YOU CAN NOT AFFORD TO SEE A PHYSICIAN YOU CAN CHOSE FROM THE FOLLOWING [facility] [id number] [facility] [address] [facility] [address] [facility] [address] [facility] [address] [facility]. [facility]. [address] Additional Instructions: FOLLOW UP WITH YOUR PRIMARY CARE PHYSICIAN TOMORROW.Return to this facility if you are not improving as expected. NEIL TRUONG PA-C Sep 05, 2018 10:40
== END 2018-09-05 10:52 | disposition home or self-care (01) ==
LOC: FTE 08:07
DX: R07.81 Pleurodynia (principal); R10.13 Epigastric pain
CPT/HCPCS: 71045; 76705; 80053; 81003; 83690; 85025; J1885; J2405; J7030; 36415; 96361; 96374; 96375